=== PATIENT | female | born 1950 | race Caucasian/White ===

== ENCOUNTER 2017-10-27 18:40 | Inpatient (IN) | payer MEDICARE ==
[~2017-10-27] VITALS: Ht 157.5 cm; Wt 70.8 kg
[2017-10-27 20:11] LABS: ALBUMIN 2.8 g/dL (3.4-5.0); ANION GAP 6 mmol/L (5-15); CALCIUM 8.5 mg/dL (8.5-10.1); CHLORIDE 101 mmol/L (98-107); CREATININE 0.79 mg/dL (0.55-1.02)
[2017-10-27 20:11] LABS: CULTURE INDICATED? YES; MICROSCOPIC INDICATED
[2017-10-27 20:13] LABS: MEAN CORPUSCULAR HEMOGLOBIN 31.5 pg (27.0-34.8); MEAN CORPUSCULAR HGB CONC 33.6 g/dL (32.4-35.8); MEAN CORPUSCULAR VOLUME 93.7 fL (80-100); MEAN PLATELET VOLUME 7.9 fL (7.4-10.4); PLATELET COUNT 293 x10^3/uL (130-400); RED BLOOD COUNT 3.97 x10^6/uL (3.82-5.3); RED CELL DISTRIBUTION WIDTH 14.8 % (9.6-15.2)
[2017-10-27 20:14] LABS: TROPONIN I < 0.015 ng/mL (0.000-0.045)
[2017-10-27 20:15] LABS: CREATINE KINASE, TOTAL 77 U/L (26-192)
[2017-10-27 20:39] LABS: BASOPHILS % (AUTO) 0 % (0-1); EOSINOPHILS % (AUTO) 0 % (1-7); LYMPHOCYTES # (AUTO) 0.54 x10^3/uL (1-3.4); LYMPHOCYTES % (AUTO) 3 % (22-44); MD SCAN; MONOCYTES # (AUTO) 0.69 x10^3/uL (0.2-0.8); MONOCYTES % (AUTO) 4 % (2-9); NEUTROPHILS # (AUTO) 18.37 x10^3/uL (1.8-6.8); NEUTROPHILS % (AUTO) 94 % (42-75)
[2017-10-27] MEDS ORDERED: DIAZ5TAB4 PO (21:12)
[2017-10-27] MEDS ORDERED: TRAZ50TA18 PO (21:14)
[2017-10-27] MEDS ORDERED: OXYGEN (21:14)
[2017-10-27 21:25] LABS: AMPHETAMINE SCREEN, URINE Negative (Negative); BARBITURATE SCREEN, URINE Negative (Negative); BENZODIAZEPINE SCREEN, URINE Positive (Negative); CANNABINOID SCREEN, URINE Positive (Negative); COCAINE SCREEN, URINE Negative (Negative); METHADONE SCREEN, URINE Negative (Negative); OPIATE SCREEN, URINE Negative (Negative)
[2017-10-27] MEDS ORDERED: THIAMINE 100 MG in SODIUM CHLORIDE 0.9% 50 ML IV ONE (21:30)
[2017-10-27] MEDS ORDERED: CEFTRIAXONE PMX 1GM/50ML 50 ML ONE (21:50)
[2017-10-27] MEDS ORDERED: SODIUM CHLORIDE 0.9% 1,000ML IVBOLUS ONE ×2 (22:00)
[2017-10-27] MEDS ORDERED: SODIUM CHLORIDE FLUSH 10ML SYR IVF ONE (22:00)
[2017-10-27] MEDS ORDERED: AZITHROMYCIN 500 MG in SODIUM CHLORIDE 0.9% 250 ML IVPB ONE (22:00)
[2017-10-27] MEDS ORDERED: CEFTRIAXONE PMX 1GM/50ML 50 ML IVPB ONE (22:00)
[2017-10-27] MEDS: SODIUM CHLORIDE 0.9% 1,000 ML IV SCH (22:24)
[2017-10-27] MEDS ORDERED: ACETAMINOPHEN 325 MG TABLET ONE (22:28)
[2017-10-27] MEDS ORDERED: hydrALAzine 20 MG/ML, 1ML IVPush PRN (22:30)
[2017-10-27] MEDS ORDERED: morphine SULFATE 10 MG/ML, 1ML IVPush PRN (22:30)
[2017-10-27] MEDS ORDERED: DOCUSATE 100 MG CAPSULE PO PRN (22:30)
[2017-10-27] MEDS ORDERED: ONDANSETRON ODT 4 MG PO PRN (22:30)
[2017-10-27] MEDS ORDERED: PROMETHAZINE 25 MG/ML, 1ML IM PRN (22:30)
[2017-10-27] MEDS ORDERED: OXYcodone IR 5MG TABLET PO PRN (22:30)
[2017-10-27] MEDS ORDERED: POLYETHYLENE GLYCOL 17 GM PACKET PO PRN (22:30)
[2017-10-27] MEDS ORDERED: BISACODYL 10 MG SUPP PR PRN (22:30)
[2017-10-27] MEDS ORDERED: CEFTRIAXONE PMX 1GM/50ML 50 ML IV ONE (22:30)
[2017-10-27] MEDS ORDERED: ONDANSETRON 2MG/ML, 2ML IVPush PRN (22:30)
[2017-10-27] MEDS: ACETAMINOPHEN 325 MG TABLET PO PRN (22:38)
[2017-10-27] MEDS: FLUTICASONE/VILANTEROL 200-25MCG/INH INH SCH (23:00)
[2017-10-27 23:13] LABS: FREE T4 (FREE THYROXINE) 1.09 ng/dL (0.76-1.46); THYROID STIMULATING HORMONE 0.553 mIU/L (0.358-3.740)
[2017-10-27] MEDS ORDERED: THIAMINE 100MG TABLET ONE (23:14)
[2017-10-27 23:17] LABS: HEMOGLOBIN A1C 5.3 % (4.2-6.3)
[2017-10-27] MEDS ORDERED: THIAMINE 100MG TABLET PO ONE ×2 (23:30)
[2017-10-28 00:15] VITALS: BP 121/73
[2017-10-28] MEDS: TRAZODONE 50MG TABLET PO SCH ×2 (00:47→21:22)
[2017-10-28] MEDS: ENOXAPARIN 40 MG/0.4 ML SQ SCH (00:48)
[2017-10-28 05:00] LABS: MEAN CORPUSCULAR HEMOGLOBIN 31.7 pg (27.0-34.8); MEAN CORPUSCULAR HGB CONC 33.7 g/dL (32.4-35.8); MEAN CORPUSCULAR VOLUME 94.1 fL (80-100); MEAN PLATELET VOLUME 7.6 fL (7.4-10.4); PLATELET COUNT 270 x10^3/uL (130-400); RED BLOOD COUNT 3.58 x10^6/uL (3.82-5.3); RED CELL DISTRIBUTION WIDTH 14.5 % (9.6-15.2)
[2017-10-28 05:07] VITALS: BP 129/70
[2017-10-28 05:23] LABS: ALBUMIN 2.2 g/dL (3.4-5.0); ANION GAP 6 mmol/L (5-15); CHLORIDE 109 mmol/L (98-107)
[2017-10-28 05:27] LABS: ALANINE AMINOTRANSFERASE 21 U/L (12-78); ALKALINE PHOSPHATASE 70 U/L (45-117); BILIRUBIN,TOTAL 0.5 mg/dL (0.2-1.0); CHOL/HDL RATIO 1.7; CHOLESTEROL, TOTAL 106 mg/dL (140-239); CREATININE 0.72 mg/dL (0.55-1.02); HDL CHOL % 60 % (28-40); HDL CHOLESTEROL (DIRECT) 64 mg/dL (40-60); LDL CHOLESTEROL,CALCULATED 36 mg/dL (54-169); LDL/HDL RATIO 0.6 (0.5-3.0); TOTAL PROTEIN 5.5 g/dL (6.4-8.2); TRIGLYCERIDES 31 mg/dL (50-200); VLDL CHOLESTEROL 6 mg/dL (0-25)
[2017-10-28 05:28] LABS: MD YES
[2017-10-28 05:30] LABS: <PLATELET ESTIMATE> ADEQUATE; ANISOCYTOSIS 1+; BAND#(MANUAL) 3.26 x10^3/uL; BANDS%(MANUAL) 17 % (0-7); LYMPH#(MANUAL) 3.46 x10^3/uL (1-3.4); LYMPHS% (MANUAL) 18 % (22-44); MONOS#(MANUAL) 0.38 x10^3/uL (0.3-2.7); MONOS% (MANUAL) 2 % (2-9); POLYCHROMASIA 1+; SEGS% (MANUAL) 63 % (42-75)
[2017-10-28 05:31] LABS: <PLT MORPHOLOGY> NORMAL PLT MORPH
[2017-10-28] MEDS ORDERED: GADOBUTROL 7.5 MMOL/7.5 ML PFS ONE (06:34)
[2017-10-28 08:29] VITALS: BP 138/79
[2017-10-28] MEDS: SODIUM CHLORIDE 0.9% 1,000 ML IV SCH (09:24)
[2017-10-28] MEDS: ACETAMINOPHEN 325 MG TABLET PO PRN ×2 (09:42→19:22)
[2017-10-28] MEDS ORDERED: MAGNESIUM SULFATE PMX 2GM/50ML 50 ML IV ONE (10:00)
[2017-10-28] MEDS: MAGNESIUM CHLORIDE 64 MG TABLET.DR PO SCH ×2 (10:40→21:22)
[2017-10-28 13:00] VITALS: BP 124/72
[2017-10-28 19:08] VITALS: BP 139/93
[2017-10-28] MEDS ORDERED: CEFTRIAXONE PMX 2GM/50ML 50 ML IV SCH (20:00)
[2017-10-28] MEDS ORDERED: AZITHROMYCIN 500 MG in SODIUM CHLORIDE 0.9% 250 ML IV SCH (20:00)
[2017-10-28] MEDS: FLUTICASONE/VILANTEROL 200-25MCG/INH INH SCH (23:00)
[2017-10-29] MEDS: ENOXAPARIN 40 MG/0.4 ML SQ SCH (00:52)
[2017-10-29 01:26] VITALS: BP 119/63
[2017-10-29 05:54] LABS: CHLORIDE 112 mmol/L (98-107)
[2017-10-29 06:00] LABS: MEAN CORPUSCULAR HEMOGLOBIN 31.3 pg (27.0-34.8); MEAN CORPUSCULAR HGB CONC 33.2 g/dL (32.4-35.8); MEAN CORPUSCULAR VOLUME 94.3 fL (80-100); MEAN PLATELET VOLUME 7.7 fL (7.4-10.4); PLATELET COUNT 255 x10^3/uL (130-400); RED BLOOD COUNT 3.46 x10^6/uL (3.82-5.3); RED CELL DISTRIBUTION WIDTH 15.5 % (9.6-15.2)
[2017-10-29 06:05] LABS: ANION GAP 8 mmol/L (5-15); CALCIUM 8.1 mg/dL (8.5-10.1)
[2017-10-29 06:15] LABS: MD YES
[2017-10-29 06:22] LABS: LYMPH#(MANUAL) 1.39 x10^3/uL (1-3.4); LYMPHS% (MANUAL) 10 % (22-44); MONOS#(MANUAL) 0.14 x10^3/uL (0.3-2.7); MONOS% (MANUAL) 1 % (2-9)
[2017-10-29 06:23] LABS: BAND#(MANUAL) 0.56 x10^3/uL; BANDS%(MANUAL) 4 % (0-7); SEG#(MANUAL) 11.82 x10^3/uL (1.8-6.8); SEGS% (MANUAL) 85 % (42-75)
[2017-10-29 06:24] LABS: ANISOCYTOSIS 1+; TOXIC GRAN 1+
[2017-10-29 06:29] LABS: <PLATELET ESTIMATE> ADEQUATE; <PLT MORPHOLOGY> NORMAL PLT MORPH
[2017-10-29] MEDS: MAGNESIUM CHLORIDE 64 MG TABLET.DR PO SCH (08:50)
[2017-10-29] MEDS: ACETAMINOPHEN 325 MG TABLET PO PRN (08:50)
[2017-10-29 09:42] VITALS: BP 145/71
[2017-10-29 15:07] VITALS: BP 162/92
[2017-10-29] MEDS ORDERED: AZIT500T PO (16:11)
[2017-10-29] MEDS ORDERED: CEFD300C37 PO (16:11)
[2017-10-29] MEDS ORDERED: FLUT1BLS INH (16:11)
[2017-10-29 17:15] VITALS: BP 157/92
== END 2017-10-29 17:50 | disposition home health service (06) | DRG 871 ==
LOC: ED 22:00 → EDIP 22:02 → 4NOR 23:58
PROVIDERS: ADMIT Internal Medicine; ATTEND Internal Medicine
DX: A41.9 Sepsis, unspecified organism (principal); J18.1 Lobar pneumonia, unspecified organism; E44.0 Moderate protein-calorie malnutrition; J96.10 Chronic respiratory failure, unspecified whether with hypoxia or hypercapnia; Z99.81 Dependence on supplemental oxygen; E87.1 Hypo-osmolality and hyponatremia; J44.0 Chronic obstructive pulmonary disease with (acute) lower respiratory infection; W06.XXXA Fall from bed, initial encounter; E87.6 Hypokalemia; M50.322 Other cervical disc degeneration at C5-C6 level; M46.92 Unspecified inflammatory spondylopathy, cervical region; M48.02 Spinal stenosis, cervical region; F10.20 Alcohol dependence, uncomplicated; F12.10 Cannabis abuse, uncomplicated; F41.9 Anxiety disorder, unspecified; F51.04 Psychophysiologic insomnia; M43.12 Spondylolisthesis, cervical region; Z87.891 Personal history of nicotine dependence; Y93.89 Activity, other specified; Y92.092 Bedroom in other non-institutional residence as the place of occurrence of the external cause; Y99.8 Other external cause status; Z68.28 Body mass index [BMI] 28.0-28.9, adult
CPT/HCPCS: 36415; 70450; 71045; 72125; 72156; 80048; 80053; 80061; 80307; 81001; 82040; 82140; 82550; 83036; 83605; 83735; 84145; 84439; 84443; 84484; 85025; 87040; 87086; 93005; 93306; 96365; A9585; J0456; J0696; J1650; J3475; J7030; J7050

== ENCOUNTER 2018-05-21 13:49 | Emergency (ER) | payer MEDICARE ==
[~2018-05-21] VITALS: Ht 162.6 cm; Wt 68.2 kg
[~2018-05-21 13:49] MED LIST: AZIT500T PO; CEFD300C37 PO; DIAZ5TAB4 PO; FLUT1BLS INH; OXYGEN; TRAZ50TA66 PO
[2018-05-21 14:39] LABS: BASOPHILS % (AUTO) 0 % (0-1); EOSINOPHILS # (AUTO) 0.04 x10^3/uL (0-0.4); EOSINOPHILS % (AUTO) 0 % (1-7); LYMPHOCYTES # (AUTO) 0.97 x10^3/uL (1-3.4); LYMPHOCYTES % (AUTO) 6 % (22-44); MD NO; MEAN CORPUSCULAR HGB CONC 33.5 g/dL (32.4-35.8); MEAN CORPUSCULAR VOLUME 92.6 fL (80-100); MEAN PLATELET VOLUME 7.3 fL (7.4-10.4); MONOCYTES # (AUTO) 0.18 x10^3/uL (0.2-0.8); MONOCYTES % (AUTO) 1 % (2-9); NEUTROPHILS % (AUTO) 92 % (42-75); PLATELET COUNT 330 x10^3/uL (130-400); RED BLOOD COUNT 3.94 x10^6/uL (3.82-5.3); RED CELL DISTRIBUTION WIDTH 15.1 % (9.6-15.2)
[2018-05-21 14:51] LABS: ALBUMIN 3.3 g/dL (3.4-5.0); ANION GAP 8 mmol/L (5-15); CALCIUM 8.6 mg/dL (8.5-10.1); CHLORIDE 107 mmol/L (98-107); CREATININE 0.81 mg/dL (0.55-1.02)
[2018-05-21] MEDS ORDERED: OMEP10CA4 PO (15:55)
[2018-05-21] MEDS ORDERED: FLUO60TA PO (15:55)
[2018-05-21] MEDS ORDERED: OXYcodone/APAP 5/325MG TABLET ONE (16:00)
[2018-05-21] MEDS ORDERED: OXYcodone/APAP 5/325MG TABLET PO ONE (16:00)
[2018-05-21 18:10] VITALS: BP 134/54
== END 2018-05-21 18:44 | disposition home or self-care (01) ==
LOC: ED 16:42
DX: S82.434A Nondisplaced oblique fracture of shaft of right fibula, initial encounter for closed fracture (principal); S82.891A Other fracture of right lower leg, initial encounter for closed fracture; W19.XXXA Unspecified fall, initial encounter; Y93.89 Activity, other specified; Y92.89 Other specified places as the place of occurrence of the external cause; Y99.8 Other external cause status
CPT/HCPCS: 29505; 36415; 80048; 82040; 85025; 99284

== ENCOUNTER 2020-11-27 18:05 | Inpatient (IN) | payer MEDICARE ==
[~2020-11-27] VITALS: Ht 160 cm; Wt 52.6 kg
[~2020-11-27 18:05] MED LIST changes: +FLUO60TA PO; +OMEP10CA5 PO
--- NOTE | 2020-11-27 18:40 | NUR ---
PT TO ROOM FROM LOBBY IN WHEELCHAIR.
[2020-11-27] MEDS ORDERED: SODIUM CHLORIDE FLUSH 10ML SYR IVF ONE (19:00)
[2020-11-27 19:10] LABS: BASOPHILS % (AUTO) 0 % (0-1); EOSINOPHILS % (AUTO) 0 % (1-7); LYMPHOCYTES % (AUTO) 5 % (22-44); MEAN CORPUSCULAR HEMOGLOBIN 29.7 pg (27.0-34.8); MEAN CORPUSCULAR HGB CONC 33.2 g/dL (32.4-35.8); MONOCYTES % (AUTO) 8 % (2-9); NEUTROPHILS % (AUTO) 86 % (42-75); PLATELET COUNT 351 x10^3/uL (130-400); RED BLOOD COUNT 5.33 x10^6/uL (3.82-5.3); RED CELL DISTRIBUTION WIDTH 15.3 % (9.6-15.2)
--- NOTE | 2020-11-27 19:13 | NUR ---
BIBA FROM HOME FOR DIZZINESS AND WEAKNESS, + NAUSEA, AND ANXIETY X2 WKS. PT PLACED ON VITALS MONITORS, FALL PRECAUTIONS IN PLACE. DAUGHTER AT BEDSIDE.
[2020-11-27 19:18] LABS: ALANINE AMINOTRANSFERASE 112 U/L (12-78); ALBUMIN 3.1 g/dL (3.4-5.0); ANION GAP 9 mmol/L (5-15); CALCIUM 9.1 mg/dL (8.5-10.1); CHLORIDE 103 mmol/L (98-107); CREATININE 0.87 mg/dL (0.55-1.02)
[2020-11-27 19:20] LABS: ALKALINE PHOSPHATASE 138 U/L (45-117); BILIRUBIN,TOTAL 0.6 mg/dL (0.2-1.0)
--- NOTE | 2020-11-27 21:28 | NUR ---
PT AMBULATED TO RESTROOM WITH ASSISTANCE.
--- NOTE | 2020-11-27 21:29 | NUR ---
JESSE LEMUS PT'S DAUGHTER [phone].
--- NOTE | 2020-11-27 21:42 | NUR ---
PT DESATS DOWN TO 85% ON RA. PLACED BACK ON 2L NC SATURATION UP TO 96%
[2020-11-27 21:46] LABS: MICROSCOPIC NOT IND
[2020-11-27] MEDS ORDERED: SODIUM CHLORIDE FLUSH 10ML SYR IVF PRN (22:00)
--- NOTE | 2020-11-27 22:08 | NUR ---
PROVIDED CHICKEN BROTH AND CRACKERS.
[2020-11-27] MEDS ORDERED: DIAZEPAM 5 MG TABLET PO PRN (22:30)
[2020-11-27] MEDS ORDERED: BISACODYL 10 MG SUPP PR PRN (22:30)
[2020-11-27] MEDS ORDERED: NS + 20MEQ KCL 1,000 ML IV SCH (22:30)
[2020-11-27] MEDS ORDERED: ONDANSETRON ODT 4 MG PO PRN (22:30)
[2020-11-27] MEDS ORDERED: FLUTICASONE/VILANTEROL 200-25MCG/INH INH SCH (22:30)
[2020-11-27] MEDS ORDERED: POLYETHYLENE GLYCOL 17 GM PACKET PO PRN (22:30)
[2020-11-27] MEDS ORDERED: SODIUM CHLORIDE 0.9% 1,000 ML IV SCH (22:30)
--- NOTE | 2020-11-27 22:46 | NUR ---
REPORT TO MICHAEL ULRICH.
[2020-11-27 23:22] VITALS: BP 156/84
[2020-11-27] MEDS: HEPARIN 5,000 UNITS/ML, 1ML SQ SCH (23:53)
[2020-11-28] MEDS: ALBUTEROL SULFATE 2.5 MG/3 ML NPPB SCH ×4 (02:11→20:47)
[2020-11-28 02:17] VITALS: BP 161/83
[2020-11-28] MEDS ORDERED: ALBUTEROL SULFATE 2.5 MG/3 ML NPPB PRN (03:00)
[2020-11-28 05:06] LABS: BASOPHILS % (AUTO) 0 % (0-1); EOSINOPHILS % (AUTO) 0 % (1-7); LYMPHOCYTES % (AUTO) 10 % (22-44); MEAN CORPUSCULAR HEMOGLOBIN 30.4 pg (27.0-34.8); MEAN CORPUSCULAR HGB CONC 33.5 g/dL (32.4-35.8); MEAN PLATELET VOLUME 7.7 fL (7.4-10.4); MONOCYTES % (AUTO) 8 % (2-9); NEUTROPHILS % (AUTO) 81 % (42-75); PLATELET COUNT 280 x10^3/uL (130-400); RED BLOOD COUNT 4.87 x10^6/uL (3.82-5.3); RED CELL DISTRIBUTION WIDTH 15.1 % (9.6-15.2)
[2020-11-28 05:22] LABS: CHLORIDE 106 mmol/L (98-107)
[2020-11-28 05:28] LABS: ALANINE AMINOTRANSFERASE 103 U/L (12-78); ALBUMIN 2.9 g/dL (3.4-5.0); ALKALINE PHOSPHATASE 119 U/L (45-117); ANION GAP 7 mmol/L (5-15); BILIRUBIN,TOTAL 0.5 mg/dL (0.2-1.0); CALCIUM 8.6 mg/dL (8.5-10.1); CREATININE 0.74 mg/dL (0.55-1.02); TOTAL PROTEIN 6.4 g/dL (6.4-8.2)
[2020-11-28 07:13] VITALS: BP 158/77
[2020-11-28] MEDS ORDERED: NS + 20MEQ KCL 1,000 ML IV SCH (08:00)
[2020-11-28] MEDS: FLUOXETINE HCL 20 MG CAPSULE PO SCH (09:08)
[2020-11-28] MEDS: SENNA/DOCUSATE TABLET PO SCH (09:08)
[2020-11-28] MEDS: OMEPRAZOLE 10 MG CAPSULE.DR PO SCH (09:08)
[2020-11-28] MEDS: HEPARIN 5,000 UNITS/ML, 1ML SQ SCH ×3 (09:09→23:25)
[2020-11-28] MEDS: BUDESONIDE 0.5 MG/2 ML INHA NPPB SCH ×2 (09:52→20:47)
[2020-11-28 12:09] VITALS: BP 156/87
[2020-11-28] MEDS: NS + 20MEQ KCL 1,000 ML IV SCH (14:49)
[2020-11-28 21:01] VITALS: BP 165/80
[2020-11-28] MEDS: TRAZODONE 50MG TABLET PO SCH (21:08)
[2020-11-28] MEDS ORDERED: MAGNESIUM SULFATE PMX 2GM/50ML 50 ML IV ONE ×2 (23:00)
[2020-11-28] MEDS ORDERED: ACETAMINOPHEN 325 MG TABLET PO PRN (23:00)
[2020-11-28] MEDS ORDERED: hydrALAzine 20 MG/ML, 1ML IV PRN (23:00)
[2020-11-28 23:30] VITALS: BP 129/72
[2020-11-29] MEDS: ALBUTEROL SULFATE 2.5 MG/3 ML NPPB SCH ×4 (02:04→21:00)
[2020-11-29 07:25] VITALS: BP 166/84
[2020-11-29] MEDS: OMEPRAZOLE 10 MG CAPSULE.DR PO SCH (08:59)
[2020-11-29] MEDS: SENNA/DOCUSATE TABLET PO SCH (09:00)
[2020-11-29] MEDS: HEPARIN 5,000 UNITS/ML, 1ML SQ SCH ×2 (09:00→16:41)
[2020-11-29] MEDS: FLUOXETINE HCL 20 MG CAPSULE PO SCH (09:00)
[2020-11-29] MEDS: BUDESONIDE 0.5 MG/2 ML INHA NPPB SCH ×2 (09:29→21:00)
[2020-11-29 12:41] VITALS: BP 136/68
[2020-11-29] MEDS: NS + 20MEQ KCL 1,000 ML IV SCH ×2 (14:33→21:20)
[2020-11-29 19:18] VITALS: BP 150/82
[2020-11-29] MEDS ORDERED: POTASSIUM CHLORIDE 20 MEQ TAB.ER.PRT PO ONE (21:00)
[2020-11-29] MEDS: TRAZODONE 50MG TABLET PO SCH (21:56)
[2020-11-30] MEDS: HEPARIN 5,000 UNITS/ML, 1ML SQ SCH ×3 (00:17→16:42)
[2020-11-30] MEDS: ALBUTEROL SULFATE 2.5 MG/3 ML NPPB SCH ×4 (02:15→21:00)
[2020-11-30 02:22] VITALS: BP 129/61
[2020-11-30] MEDS: NS + 20MEQ KCL 1,000 ML IV SCH ×3 (03:40→17:01)
[2020-11-30 07:02] VITALS: BP 144/67
[2020-11-30] MEDS: BUDESONIDE 0.5 MG/2 ML INHA NPPB SCH ×2 (08:10→21:00)
[2020-11-30] MEDS: FLUOXETINE HCL 20 MG CAPSULE PO SCH (08:37)
[2020-11-30] MEDS: SENNA/DOCUSATE TABLET PO SCH (08:37)
[2020-11-30] MEDS: OMEPRAZOLE 10 MG CAPSULE.DR PO SCH (08:37)
[2020-11-30 09:19] LABS: ANION GAP 8 mmol/L (5-15); CHLORIDE 109 mmol/L (98-107); CREATININE 0.71 mg/dL (0.55-1.02)
[2020-11-30 12:50] VITALS: BP 147/97
[2020-11-30 18:59] VITALS: BP 130/68
[2020-11-30] MEDS: TRAZODONE 50MG TABLET PO SCH (21:36)
[2020-12-01] MEDS: HEPARIN 5,000 UNITS/ML, 1ML SQ SCH ×2 (00:25→08:11)
[2020-12-01 02:08] VITALS: BP 125/63
[2020-12-01] MEDS: ALBUTEROL SULFATE 2.5 MG/3 ML NPPB SCH (02:10)
[2020-12-01] MEDS: NS + 20MEQ KCL 1,000 ML IV SCH ×3 (06:13→13:17)
[2020-12-01 07:00] VITALS: BP 175/76
[2020-12-01] MEDS: OMEPRAZOLE 10 MG CAPSULE.DR PO SCH (08:11)
[2020-12-01] MEDS: SENNA/DOCUSATE TABLET PO SCH (08:11)
[2020-12-01] MEDS: FLUOXETINE HCL 20 MG CAPSULE PO SCH (08:11)
[2020-12-01 13:47] VITALS: BP 132/76
== END 2020-12-01 15:33 | disposition home health service (06) | DRG 641 ==
LOC: ED 21:12 → EDIP 21:51 → 3N 23:15
PROVIDERS: ADMIT Family Medicine; ATTEND Internal Medicine
DX: E86.0 Dehydration (principal); J96.11 Chronic respiratory failure with hypoxia; J44.9 Chronic obstructive pulmonary disease, unspecified; R62.7 Adult failure to thrive; D72.829 Elevated white blood cell count, unspecified; E87.6 Hypokalemia; F32.9 Major depressive disorder, single episode, unspecified; G25.0 Essential tremor; Z59.0 Homelessness; Z87.891 Personal history of nicotine dependence; Z99.81 Dependence on supplemental oxygen
CPT/HCPCS: 36415; 71045; 74176; 80048; 80053; 80074; 81003; 83690; 83735; 85025; 93005; 94640; 99285; G0378; J1644; J3480; J7613; J7626; J3475

== ENCOUNTER 2021-01-21 17:59 | Emergency (ER) | payer MEDICARE ==
[~2021-01-21] VITALS: Ht 157.5 cm; Wt 51.8 kg
--- NOTE | 2021-01-21 18:15 | NUR ---
RT at bedside.
[2021-01-21] MEDS ORDERED: ALBUTEROL/IPRATROPIUM 2.5MG/0.5MG, 3 ML ONE (18:16)
[2021-01-21] MEDS ORDERED: ALBUTEROL/IPRATROPIUM 2.5MG/0.5MG, 3 ML NPPB ONE (18:30)
--- NOTE | 2021-01-21 18:30 | NUR ---
Pt reports feeling improved s/p breathing tx. Remains upright on gurney with no further complaints. Lab at bedside.
[2021-01-21 18:39] LABS: BASOPHILS % (AUTO) 1 % (0-1); EOSINOPHILS % (AUTO) 1 % (1-7); LYMPHOCYTES % (AUTO) 14 % (22-44); MEAN CORPUSCULAR HEMOGLOBIN 30.4 pg (27.0-34.8); MEAN CORPUSCULAR HGB CONC 33.4 g/dL (32.4-35.8); MEAN PLATELET VOLUME 7.3 fL (7.4-10.4); MONOCYTES % (AUTO) 8 % (2-9); NEUTROPHILS % (AUTO) 77 % (42-75); PLATELET COUNT 277 x10^3/uL (130-400); RED BLOOD COUNT 4.36 x10^6/uL (3.82-5.3); RED CELL DISTRIBUTION WIDTH 16.1 % (9.6-15.2)
--- NOTE | 2021-01-21 19:04 | NUR ---
Report to SERG Suazo, to assume full care, all questions answered.
--- NOTE | 2021-01-21 19:23 | NUR ---
PT UP TO RESTROOM WITH STEADY GAIT NADN
[2021-01-21 20:19] VITALS: BP 162/75
--- NOTE | 2021-01-21 20:19 | NUR ---
PT RESTING ON GURNEY RESP EVEN AND UNLABORED NADN, VSS NO NEEDS AT THIS TIME.
[2021-01-21 21:12] LABS: CHLORIDE 106 mmol/L (98-107)
[2021-01-21 21:21] LABS: ALANINE AMINOTRANSFERASE 53 U/L (12-78); ALBUMIN 2.9 g/dL (3.4-5.0); ALKALINE PHOSPHATASE 112 U/L (45-117); ANION GAP 3 mmol/L (5-15); BILIRUBIN,TOTAL 0.4 mg/dL (0.2-1.0); CALCIUM 8.8 mg/dL (8.5-10.1); CREATININE 0.87 mg/dL (0.55-1.02); TOTAL PROTEIN 6.5 g/dL (6.4-8.2); TROPONIN I < 0.015 ng/mL (0.000-0.045)
--- NOTE | 2021-01-21 22:49 | NUR ---
PT REFUSING TO LEAVE ED SHE DOES NOT LIKE THE JAIL, ALTERNATE SHELTERS CONTACTED UNABLE TO TAKE PT. PT GIVEN DC INSTRUCTIONS AND TAXI VOUCHER TO [facility] RES[employer] LIST
== END 2021-01-21 22:55 | disposition home or self-care (01) ==
LOC: ED 21:16
DX: J44.1 Chronic obstructive pulmonary disease with (acute) exacerbation (principal); Z72.9 Problem related to lifestyle, unspecified; R06.02 Shortness of breath; R94.31 Abnormal electrocardiogram [ECG] [EKG]; F17.210 Nicotine dependence, cigarettes, uncomplicated
CPT/HCPCS: 36415; 71045; 80053; 83880; 84484; 85025; 93005; 94640; 99285; 99406

== ENCOUNTER 2021-02-09 21:45 | Inpatient (IN) | payer MEDICARE ==
[~2021-02-09] VITALS: Ht 157.5 cm; Wt 50.7 kg
[~2021-02-09 21:45] MED LIST changes: +AMLO-150 PO; +FLUO20CA23 PO
--- NOTE | 2021-02-09 21:58 | NUR ---
[facility]. PT REPORTED TO CAREGIVER THAT SHE HAD TERRIBLE DIZZYNESS, HEADACHE, CHEST RESSURE AND TIGHTNESS SO CAREGIVER CALLED ANGEL LUIS PT STATES IF HER O2 ISNT ON THEN SHE HAS THESE SYMPTOMS. ATTACHED TO CARD/SP02/BP MONITORS. BP ELEVATED. NADN BED IN LOW, RAILS ENGAGED, CALL LIGHT ON LAP. WCTM PT VERY POOR HISTORIAN
[2021-02-09] MEDS ORDERED: PLEASE ENTER HEIGHT AND WEIGHT MC SCH (22:00)
[2021-02-09] MEDS ORDERED: ACETAMINOPHEN 500 MG TABLET PO ONE (22:00)
[2021-02-09 22:34] LABS: BASOPHILS % (AUTO) 1 % (0-1); EOSINOPHILS % (AUTO) 0 % (1-7); LYMPHOCYTES % (AUTO) 9 % (22-44); MEAN CORPUSCULAR HEMOGLOBIN 30.8 pg (27.0-34.8); MEAN PLATELET VOLUME 7.2 fL (7.4-10.4); MONOCYTES % (AUTO) 6 % (2-9); NEUTROPHILS % (AUTO) 83 % (42-75); PLATELET COUNT 335 x10^3/uL (130-400); RED BLOOD COUNT 4.23 x10^6/uL (3.82-5.3); RED CELL DISTRIBUTION WIDTH 15.4 % (9.6-15.2)
--- NOTE | 2021-02-09 22:45 | NUR ---
PT TRANSFERRED TO [facility]. TOLERATED WELL. UNMEASURED URINE Addendum: 02/09/21 at 2255 by [email or web address] PT RESTING IN BED WITH BLANKETS, ATTACHED TO MONITORS. BP ELEVATED. NADN. WATCHING TV. URINE CLEAR AND YELLOW. WCTM
[2021-02-09 22:46] LABS: ALBUMIN 2.8 g/dL (3.4-5.0); ANION GAP 8 mmol/L (5-15); CALCIUM 8.5 mg/dL (8.5-10.1); CHLORIDE 105 mmol/L (98-107); CREATININE 0.78 mg/dL (0.55-1.02)
[2021-02-09 22:50] LABS: TROPONIN I < 0.015 ng/mL (0.000-0.045)
[2021-02-10] VITALS (7 sets, daily range): BP systolic 134–175; BP diastolic 80–105
--- NOTE | 2021-02-10 00:41 | NUR ---
Patient is resting comfortably in bed WATCHING TV. Bed in lowest, rails engaged, call light on lap. Vital Signs within normal limits. WCTM. NADN
[2021-02-10] MEDS ORDERED: ACETAMINOPHEN 500 MG TABLET ONE (00:43)
--- NOTE | 2021-02-10 00:49 | NUR ---
CALLED [facility] [phone] NO ANSWER
--- NOTE | 2021-02-10 01:47 | NUR ---
[facility] [phone] no answer Addendum: 02/10/21 at 0148 by [email or web address] Jana martin [phone]
--- NOTE | 2021-02-10 01:54 | NUR ---
SPOKE TO MD ABOUT PT TRANSPORT BACK TO HOME FOR SAFE DC AND WAS INSTRUCTED TO KEEP PT UNTIL WE CAN GET A HOLD OF ALF.
--- NOTE | 2021-02-10 02:03 | NUR ---
Patient is resting comfortably in bed. Bed in lowest, rails engaged, call light on lap. Vital Signs within normal limits. WCTM.
--- NOTE | 2021-02-10 02:13 | NUR ---
CALLED morgan martin AND HE DID NOT ANSWER. 2ND MISSED CALL
--- NOTE | 2021-02-10 02:44 | NUR ---
SPOKE TO MO HARRIS AND HE SAID THEY ARE NOT ALLOWING PT TO COME BACK DUE TO NON-COMPLIANCE BY SMOKING CIGARETTES AND NOT LISTENING, AND NOT FOLLOWING DIRECTIONS. Addendum: 02/10/21 at 0250 by [email or web address] MO REPEATEDLY STATED THEY ARE NOT TAKING PT BACK NOTIFIED ERMD AND CHARGE NURSE ABOUT SITUATION.
[2021-02-10] MEDS ORDERED: TRAZ50TA66 PO (03:43)
[2021-02-10] MEDS ORDERED: BUSP5TAB2 PO (03:43)
[2021-02-10] MEDS ORDERED: FLUO60TA PO (03:43)
[2021-02-10] MEDS ORDERED: OMEP-110 PO (03:43)
--- NOTE | 2021-02-10 03:43 | NUR ---
PT POOR HISTORIAN WITH MEDICATIONS. MAKE TAKE MORE BU UNKNOWN
--- NOTE | 2021-02-10 03:45 | NUR ---
PT REPORTS TO THIS NURSE THAT MO WAS MISTREATING HER DUE TO NOT BEING ABLE TO PAY HER PART AT THE DETENTION.
[2021-02-10] MEDS ORDERED: MELATONIN 5 MG TABLET PO PRN (04:00)
[2021-02-10] MEDS ORDERED: NITROGLYCERIN 0.4 MG/SPRAY SL PRN (04:00)
[2021-02-10] MEDS ORDERED: ENOXAPARIN 40 MG/0.4 ML SQ SCH (04:00)
[2021-02-10] MEDS ORDERED: NITROGLYCERIN 0.4 MG BOTTLE (25 TABS) SL PRN (04:00)
[2021-02-10] MEDS ORDERED: ONDANSETRON 2MG/ML, 2ML IVPush PRN (04:00)
[2021-02-10] MEDS ORDERED: OXYcodone IR 5MG TABLET PO PRN (04:00)
[2021-02-10] MEDS ORDERED: POLYETHYLENE GLYCOL 17 GM PACKET PO PRN (04:00)
[2021-02-10] MEDS ORDERED: LABETALOL 5MG/ML, 20ML ONE (04:07)
[2021-02-10] MEDS ORDERED: ENOXAPARIN 40 MG/0.4 ML ONE (04:07)
[2021-02-10] MEDS: LABETALOL 5MG/ML, 20ML IVPush PRN ×4 (04:10→23:46)
[2021-02-10 04:18] LABS: ANION GAP 7 mmol/L (5-15); CALCIUM 8.5 mg/dL (8.5-10.1); CHLORIDE 105 mmol/L (98-107); CREATININE 0.67 mg/dL (0.55-1.02)
[2021-02-10 04:21] LABS: TROPONIN I < 0.015 ng/mL (0.000-0.045)
--- NOTE | 2021-02-10 04:53 | NUR ---
LATE ENTRY DUE TO PT CARE. PUREWICK APPLIED DUE TO PT HAVING TO GET UP EVERY 30 MINUTES TO URINATE 450ML TOTAL YELLOW CLEAR URINE IN SUCTION CONTAINER. PT IS NOT STABLE TRANSFER. PUREWICK APPLIED FOR SAFETY.
--- NOTE | 2021-02-10 05:08 | NUR ---
GAVE REPORT TO OLGA ULRICH
--- NOTE | 2021-02-10 05:12 | NUR ---
Patient is resting comfortably in bed. Bed in lowest, rails engaged, call light on lap. Vital Signs within normal limits. WCTM.
[2021-02-10] MEDS: ENOXAPARIN 40 MG/0.4 ML SQ SCH (05:46)
[2021-02-10] MEDS: ACETAMINOPHEN 325 MG TABLET PO PRN ×2 (05:46→23:26)
[2021-02-10 09:30] LABS: BASOPHILS % (AUTO) 1 % (0-1); EOSINOPHILS % (AUTO) 1 % (1-7); LYMPHOCYTES % (AUTO) 10 % (22-44); MEAN CORPUSCULAR HEMOGLOBIN 29.8 pg (27.0-34.8); MEAN CORPUSCULAR HGB CONC 32.7 g/dL (32.4-35.8); MEAN PLATELET VOLUME 7.3 fL (7.4-10.4); MONOCYTES % (AUTO) 6 % (2-9); NEUTROPHILS % (AUTO) 83 % (42-75); PLATELET COUNT 370 x10^3/uL (130-400); RED BLOOD COUNT 4.48 x10^6/uL (3.82-5.3); RED CELL DISTRIBUTION WIDTH 15.4 % (9.6-15.2)
[2021-02-10 09:46] LABS: TROPONIN I < 0.015 ng/mL (0.000-0.045)
[2021-02-11 00:14] VITALS: BP 165/97
[2021-02-11] MEDS: ENOXAPARIN 40 MG/0.4 ML SQ SCH (05:41)
[2021-02-11 08:25] VITALS: BP 164/83
[2021-02-11] MEDS: OMEPRAZOLE 20 MG CAPSULE.DR PO SCH (08:26)
[2021-02-11] MEDS: FLUOXETINE HCL 20 MG CAPSULE PO SCH (08:26)
[2021-02-11] MEDS: AMLODIPINE 5 MG TABLET PO SCH ×2 (08:26→20:22)
[2021-02-11] MEDS: BUSPIRONE 5 MG TABLET PO SCH ×3 (08:26→20:22)
[2021-02-11] MEDS ORDERED: POTASSIUM CHLORIDE 20 MEQ TAB.ER.PRT PO ONE (08:30)
[2021-02-11] MEDS: ALBUTEROL/IPRATROPIUM 2.5MG/0.5MG, 3 ML HHN SCH ×3 (09:57→21:10)
[2021-02-11] MEDS: BUDESONIDE 0.5 MG/2 ML INHA INH SCH ×2 (09:57→21:15)
[2021-02-11 10:12] LABS: ALANINE AMINOTRANSFERASE 31 U/L (12-78); ALBUMIN 2.8 g/dL (3.4-5.0); ANION GAP 7 mmol/L (5-15); CALCIUM 8.6 mg/dL (8.5-10.1); CHLORIDE 104 mmol/L (98-107); CREATININE 0.74 mg/dL (0.55-1.02)
[2021-02-11 10:15] LABS: ALKALINE PHOSPHATASE 122 U/L (45-117); BILIRUBIN,TOTAL 0.4 mg/dL (0.2-1.0); TOTAL PROTEIN 6.7 g/dL (6.4-8.2)
[2021-02-11 10:45] LABS: MICROSCOPIC NOT IND
[2021-02-11 12:45] VITALS: BP 154/73
[2021-02-11] MEDS: ACETAMINOPHEN 325 MG TABLET PO PRN (13:50)
[2021-02-11 20:02] VITALS: BP 162/80
[2021-02-11] MEDS: TRAZODONE 50MG TABLET PO SCH (20:22)
[2021-02-12 01:03] VITALS: BP 138/83
[2021-02-12] MEDS: ALBUTEROL/IPRATROPIUM 2.5MG/0.5MG, 3 ML HHN SCH ×4 (03:00→19:59)
[2021-02-12 05:57] LABS: BASOPHILS % (AUTO) 1 % (0-1); EOSINOPHILS % (AUTO) 2 % (1-7); LYMPHOCYTES % (AUTO) 16 % (22-44); MEAN CORPUSCULAR HEMOGLOBIN 30.3 pg (27.0-34.8); MEAN CORPUSCULAR HGB CONC 33.1 g/dL (32.4-35.8); MEAN PLATELET VOLUME 6.9 fL (7.4-10.4); MONOCYTES % (AUTO) 8 % (2-9); NEUTROPHILS % (AUTO) 74 % (42-75); PLATELET COUNT 364 x10^3/uL (130-400); RED CELL DISTRIBUTION WIDTH 15.4 % (9.6-15.2)
[2021-02-12] MEDS: ENOXAPARIN 40 MG/0.4 ML SQ SCH (06:09)
[2021-02-12 07:00] VITALS: BP 135/80
[2021-02-12] MEDS: BUDESONIDE 0.5 MG/2 ML INHA INH SCH ×2 (07:32→19:59)
[2021-02-12] MEDS: AMLODIPINE 5 MG TABLET PO SCH ×2 (08:16→20:15)
[2021-02-12] MEDS: BUSPIRONE 5 MG TABLET PO SCH ×3 (08:16→20:15)
[2021-02-12] MEDS: FLUOXETINE HCL 20 MG CAPSULE PO SCH (08:16)
[2021-02-12] MEDS: OMEPRAZOLE 20 MG CAPSULE.DR PO SCH (08:16)
[2021-02-12 12:50] VITALS: BP 144/82
[2021-02-12 18:59] VITALS: BP 145/84
[2021-02-12 20:13] VITALS: BP 166/81
[2021-02-12] MEDS: ACETAMINOPHEN 325 MG TABLET PO PRN (20:15)
[2021-02-12] MEDS: TRAZODONE 50MG TABLET PO SCH (20:15)
[2021-02-13] MEDS: ACETAMINOPHEN 325 MG TABLET PO PRN ×4 (00:48→21:02)
[2021-02-13 00:49] VITALS: BP 151/83
[2021-02-13] MEDS: ALBUTEROL/IPRATROPIUM 2.5MG/0.5MG, 3 ML HHN SCH ×4 (03:00→21:00)
[2021-02-13] MEDS: ENOXAPARIN 40 MG/0.4 ML SQ SCH (06:00)
[2021-02-13] MEDS: LISINOPRIL 10 MG TABLET PO SCH (08:22)
[2021-02-13] MEDS: BUSPIRONE 5 MG TABLET PO SCH ×3 (08:22→21:02)
[2021-02-13] MEDS: FLUOXETINE HCL 20 MG CAPSULE PO SCH (08:22)
[2021-02-13] MEDS: AMLODIPINE 5 MG TABLET PO SCH ×2 (08:22→21:02)
[2021-02-13] MEDS: OMEPRAZOLE 20 MG CAPSULE.DR PO SCH (08:22)
[2021-02-13 08:23] VITALS: BP 156/72
[2021-02-13] MEDS: BUDESONIDE 0.5 MG/2 ML INHA INH SCH ×2 (09:00→21:00)
[2021-02-13 12:30] VITALS: BP 137/83
[2021-02-13 19:39] VITALS: BP 135/75
[2021-02-13] MEDS: TRAZODONE 50MG TABLET PO SCH (21:02)
[2021-02-14 00:39] VITALS: BP 134/73
[2021-02-14] MEDS: ALBUTEROL/IPRATROPIUM 2.5MG/0.5MG, 3 ML HHN SCH ×4 (03:00→21:00)
[2021-02-14] MEDS: ENOXAPARIN 40 MG/0.4 ML SQ SCH (05:53)
[2021-02-14] MEDS: BUDESONIDE 0.5 MG/2 ML INHA INH SCH ×2 (08:29→21:00)
[2021-02-14 09:10] VITALS: BP 148/79
[2021-02-14] MEDS: BUSPIRONE 5 MG TABLET PO SCH ×3 (09:56→20:20)
[2021-02-14] MEDS: OMEPRAZOLE 20 MG CAPSULE.DR PO SCH (09:56)
[2021-02-14] MEDS: LISINOPRIL 10 MG TABLET PO SCH (09:56)
[2021-02-14] MEDS: AMLODIPINE 5 MG TABLET PO SCH ×2 (09:56→20:20)
[2021-02-14] MEDS: FLUOXETINE HCL 20 MG CAPSULE PO SCH (09:56)
[2021-02-14 14:08] VITALS: BP 160/75
[2021-02-14] MEDS: ACETAMINOPHEN 325 MG TABLET PO PRN (18:48)
[2021-02-14 19:37] VITALS: BP 169/89
[2021-02-14] MEDS: TRAZODONE 50MG TABLET PO SCH (20:20)
[2021-02-15 01:15] VITALS: BP 139/66
[2021-02-15] MEDS: ALBUTEROL/IPRATROPIUM 2.5MG/0.5MG, 3 ML HHN SCH ×3 (03:00→10:02)
[2021-02-15] MEDS: ENOXAPARIN 40 MG/0.4 ML SQ SCH (05:07)
[2021-02-15 07:06] VITALS: BP 166/75
[2021-02-15 09:41] VITALS: BP 147/82
[2021-02-15] MEDS: AMLODIPINE 5 MG TABLET PO SCH ×2 (09:42→21:41)
[2021-02-15] MEDS: BUDESONIDE 0.5 MG/2 ML INHA INH SCH (09:42)
[2021-02-15] MEDS: BUSPIRONE 5 MG TABLET PO SCH ×3 (09:42→21:40)
[2021-02-15] MEDS: OMEPRAZOLE 20 MG CAPSULE.DR PO SCH (09:42)
[2021-02-15] MEDS: LISINOPRIL 10 MG TABLET PO SCH ×2 (09:42→21:41)
[2021-02-15] MEDS: FLUOXETINE HCL 20 MG CAPSULE PO SCH (09:42)
[2021-02-15] MEDS: ACETAMINOPHEN 325 MG TABLET PO PRN ×3 (11:56→21:40)
[2021-02-15 13:40] VITALS: BP 146/74
[2021-02-15 19:17] VITALS: BP 154/77
[2021-02-15] MEDS: TRAZODONE 50MG TABLET PO SCH (21:41)
[2021-02-16 01:20] VITALS: BP 153/76
[2021-02-16] MEDS: ENOXAPARIN 40 MG/0.4 ML SQ SCH (05:35)
[2021-02-16 05:58] LABS: BASOPHILS % (AUTO) 1 % (0-1); EOSINOPHILS % (AUTO) 2 % (1-7); LYMPHOCYTES % (AUTO) 23 % (22-44); MEAN CORPUSCULAR HEMOGLOBIN 30.1 pg (27.0-34.8); MEAN CORPUSCULAR HGB CONC 32.5 g/dL (32.4-35.8); MEAN PLATELET VOLUME 7.1 fL (7.4-10.4); MONOCYTES % (AUTO) 8 % (2-9); NEUTROPHILS % (AUTO) 66 % (42-75); PLATELET COUNT 322 x10^3/uL (130-400); RED BLOOD COUNT 4.17 x10^6/uL (3.82-5.3); RED CELL DISTRIBUTION WIDTH 15.1 % (9.6-15.2)
[2021-02-16 07:21] VITALS: BP 150/77
[2021-02-16] MEDS: OMEPRAZOLE 20 MG CAPSULE.DR PO SCH (08:40)
[2021-02-16] MEDS: FLUOXETINE HCL 20 MG CAPSULE PO SCH (08:40)
[2021-02-16] MEDS: AMLODIPINE 5 MG TABLET PO SCH ×2 (08:40→21:33)
[2021-02-16] MEDS: LISINOPRIL 10 MG TABLET PO SCH ×2 (08:40→21:33)
[2021-02-16] MEDS: BUSPIRONE 5 MG TABLET PO SCH ×3 (08:40→21:33)
[2021-02-16] MEDS: ACETAMINOPHEN 325 MG TABLET PO PRN ×3 (09:55→21:33)
[2021-02-16 13:39] VITALS: BP 132/58
[2021-02-16 18:07] VITALS: BP 135/76
[2021-02-16] MEDS: TRAZODONE 50MG TABLET PO SCH (21:33)
[2021-02-17 00:31] VITALS: BP 142/69
[2021-02-17] MEDS: ENOXAPARIN 40 MG/0.4 ML SQ SCH (06:00)
[2021-02-17 06:48] VITALS: BP 144/75
[2021-02-17] MEDS: OMEPRAZOLE 20 MG CAPSULE.DR PO SCH (07:52)
[2021-02-17] MEDS: AMLODIPINE 5 MG TABLET PO SCH ×2 (07:52→21:11)
[2021-02-17] MEDS: BUSPIRONE 5 MG TABLET PO SCH ×3 (07:52→21:11)
[2021-02-17] MEDS: FLUOXETINE HCL 20 MG CAPSULE PO SCH (07:53)
[2021-02-17] MEDS: LISINOPRIL 10 MG TABLET PO SCH ×2 (07:53→21:10)
[2021-02-17 12:31] VITALS: BP 158/68
[2021-02-17] MEDS: BUTALB/APAP/CAFFEINE 50MG/325MG/40MG PO PRN ×2 (13:57→21:10)
[2021-02-17 20:00] VITALS: BP 153/60
[2021-02-17] MEDS: TRAZODONE 50MG TABLET PO SCH (21:11)
[2021-02-18 01:33] VITALS: BP 117/62
[2021-02-18] MEDS: ENOXAPARIN 40 MG/0.4 ML SQ SCH (06:00)
[2021-02-18] MEDS: FLUOXETINE HCL 20 MG CAPSULE PO SCH (08:02)
[2021-02-18] MEDS: OMEPRAZOLE 20 MG CAPSULE.DR PO SCH (08:03)
[2021-02-18] MEDS: LISINOPRIL 10 MG TABLET PO SCH (08:03)
[2021-02-18] MEDS: AMLODIPINE 5 MG TABLET PO SCH (08:03)
[2021-02-18] MEDS: BUSPIRONE 5 MG TABLET PO SCH ×2 (08:03→15:27)
[2021-02-18 09:24] VITALS: BP 142/77
[2021-02-18] MEDS: BUTALB/APAP/CAFFEINE 50MG/325MG/40MG PO PRN ×2 (09:33→15:28)
[2021-02-18] MEDS ORDERED: BUTA-177 PO (14:13)
[2021-02-18] MEDS ORDERED: AMLO-150 PO (14:13)
[2021-02-18] MEDS ORDERED: LISI-167 PO (14:13)
[2021-02-18 15:17] VITALS: BP 143/76
== END 2021-02-18 17:21 | disposition home or self-care (01) | DRG 313 ==
LOC: ED 22:00 → EDIP 02-10 03:46 → OBSVTOIN 02-10 03:46 → 5SO 02-10 05:26 → 3N 02-15 20:13
PROVIDERS: ADMIT Internal Medicine; ATTEND Family Medicine
DX: R07.89 Other chest pain (principal); J96.11 Chronic respiratory failure with hypoxia; R62.7 Adult failure to thrive; J44.9 Chronic obstructive pulmonary disease, unspecified; I27.20 Pulmonary hypertension, unspecified; F17.210 Nicotine dependence, cigarettes, uncomplicated; F41.9 Anxiety disorder, unspecified; I10 Essential (primary) hypertension; F12.90 Cannabis use, unspecified, uncomplicated; F32.9 Major depressive disorder, single episode, unspecified; E87.6 Hypokalemia; D72.829 Elevated white blood cell count, unspecified; Z99.81 Dependence on supplemental oxygen; Z71.6 Tobacco abuse counseling; Z59.0 Homelessness; Z79.899 Other long term (current) drug therapy; Z68.20 Body mass index [BMI] 20.0-20.9, adult
CPT/HCPCS: 36415; 71045; 80048; 80053; 81003; 82040; 84132; 84145; 84484; 85025; 85379; 93005; 94640; 96374; 99406; G0378; J1650; J2405; J7626

== ENCOUNTER 2021-02-20 16:35 | Emergency (ER) | payer MEDICARE ==
[~2021-02-20] VITALS: Ht 157.5 cm; Wt 48.3 kg
[~2021-02-20 16:35] MED LIST changes: +BUSP5TAB2 PO; +BUTA-177 PO; +LISI-167 PO; +OMEP-110 PO
--- NOTE | 2021-02-20 17:03 | NUR ---
KIMBERLY HEIN FOR CP AND SOB. SEEN AT [facility] EARLIER TODAY. PT IS ALSO EXPERIENCING HOMELESSNESS. UNABLE TO GET INTO A INTERMEDIATE AT THIS TIME. PT IN BED WITH CONT CEMENT SACK BREAKER, SPO2, BP Q 30 MIN, SIDE RAILS UP X2, CALL [facility] IN REACH. SW CONSULT PUT IN.
[2021-02-20 18:03] VITALS: BP 124/74
== END 2021-02-20 18:05 | disposition home or self-care (01) ==
LOC: ED 17:55
DX: R07.89 Other chest pain (principal); R06.02 Shortness of breath; Z72.9 Problem related to lifestyle, unspecified; I10 Essential (primary) hypertension; F17.210 Nicotine dependence, cigarettes, uncomplicated
CPT/HCPCS: 36415; 71045; 80048; 80053; 81003; 82040; 84132; 84145; 84484; 85025; 85379; 93005; 94640; 96374; 99283; 99406; G0378; J1650; J2405; J7626

== ENCOUNTER 2021-02-21 17:35 | Emergency (ER) | payer MEDICARE ==
[~2021-02-21] VITALS: Ht 157.5 cm; Wt 50.0 kg
--- NOTE | 2021-02-21 17:58 | NUR ---
REPORT FROM LARA RN, ASSUME CARE OF PT AT THIS TIME. ED DIET TRAY ORDERED.
--- NOTE | 2021-02-21 18:21 | NUR ---
ED DIET TRAY PROVIDED. PT STATES SHE IS NOT SUICIDAL ANYMORE, FEELS BETTER MENTALLY AT THIS TIME. OXYGEN REMOVED TO GET RA SAT. RA SAT 96%. AWAITING XRAY. CALL LIGHT WITHIN REACH.
--- NOTE | 2021-02-21 19:18 | NUR ---
REPORT TO AISHWARYA, TRANSFER OF CARE AT THIS TIME.
--- NOTE | 2021-02-21 19:58 | NUR ---
THIS RN SPOKE WITH PRODUCT CONSULTANT KAIA AND SHE STATED THAT PT WAS HERE LAST WEEK AND [facility] HAD PAID FOR PLACEMENT FOR HER, BUT PT REFUSED TO STOP SMOKING AND DID NOT F0LLOW THE PROTOCOL FOR THE LOCATION SHE WAS PLACED IN, PTS CHEST XRAY WAS CLEAR AND PT HAS BEEN 94% ON ROOM AIR, PT STATED SHE HASNT EATEN ANYTHING FOR DAYS BUT PT WAS HERE LAST NIGHT AND WAS GIVEN FOOD, PT WAS ALSO GIVEN FOOD TODAY WELL, PT GIVEN THE OPTION TO GO TO THE [facility] AND PT STATED SHE WOULD RATHER GO TO THE [facility] THIS RN PROVIDED A CAB VOUCHER TO THE [facility] AND EXPLAINED THAT PT CAN GO TO [facility] OR [facility] TO GET HER PRESCRIPTIONS, PT AMBULATED WITH HER WALKER TO THE DISCHARGE DESK, NAD UPON DISCHARGE
[2021-02-21 20:03] VITALS: BP 150/72
== END 2021-02-21 20:05 | disposition home or self-care (01) ==
LOC: ED 19:35
DX: J44.1 Chronic obstructive pulmonary disease with (acute) exacerbation (principal); I10 Essential (primary) hypertension; F17.200 Nicotine dependence, unspecified, uncomplicated; R07.89 Other chest pain
CPT/HCPCS: 71045; 93005; 99283

== ENCOUNTER 2021-02-25 10:01 | Emergency (ER) | payer MEDICARE ==
[~2021-02-25] VITALS: Ht 157.5 cm; Wt 51.0 kg
--- NOTE | 2021-02-25 10:12 | NUR ---
KIMBERLY HEIN FROM [facility] FOR GLF OUTSIDE OF SHOWER ON WET FLOOR. PT C/O RT WRIST PAIN. PT BROUGHT IN ON RA SATURATING WELL. PER PT, SHE IS ALWAYS ON 4L NC. NC PLACED IN ED FOR PT COMFORT. PT CONTINUES TO SATURATE WELL.
--- NOTE | 2021-02-25 10:54 | NUR ---
DRESSINGS REMOVED FROM BILATERAL WRISTS. PT REPORTS USING SCISSORS TO CUT BILATERAL WRISTS. SUPERFICIAL LACS IN VARYING STAGES OF HEALING EVIDENT WITH STERISTRIPS REMAINING ON SOME LACS. PT REPORTS DRESSINGS IN PLACE WERE ORIGINAL AND PT HAS NEVER CHANGED THE DRESSINGS. MD AWARE OF DRESSING REMOVAL.
[2021-02-25] MEDS ORDERED: ACETAMINOPHEN 500 MG TABLET PO ONE (11:00)
[2021-02-25] MEDS ORDERED: ACETAMINOPHEN 500 MG TABLET ONE (11:11)
--- NOTE | 2021-02-25 11:18 | NUR ---
XRAY COMPLETED AWAITING READ. PT MEDICATED PER EMAR. SIDE RAILS UP, CALL LIGHT IN REACH.
[2021-02-25] MEDS ORDERED: BACITRACIN ZINC OINT 500U/GM, 0.9 GM ONE (11:46)
--- NOTE | 2021-02-25 12:43 | NUR ---
SPLINTING COMPLETE. EDUCATION PROVIDED ON SPLINTING AND WOUND CARE. PT VERBALIZES UNDERSTANDING. MULTIPLE CALL ATTEMPTS FOR TAXI RIDE.
[2021-02-25 12:47] VITALS: BP 157/86
== END 2021-02-25 12:59 | disposition home or self-care (01) ==
LOC: ED 10:29
DX: S61.511A Laceration without foreign body of right wrist, initial encounter (principal); S61.411A Laceration without foreign body of right hand, initial encounter; S60.211A Contusion of right wrist, initial encounter; I10 Essential (primary) hypertension; J44.9 Chronic obstructive pulmonary disease, unspecified; W18.30XA Fall on same level, unspecified, initial encounter; Y93.89 Activity, other specified; Y92.009 Unspecified place in unspecified non-institutional (private) residence as the place of occurrence of the external cause; Y99.8 Other external cause status
CPT/HCPCS: 29125; 99283

== ENCOUNTER 2021-03-12 16:21 | Inpatient (IN) | payer MEDICARE ==
[~2021-03-12] VITALS: Ht 157.5 cm; Wt 47.2 kg
[2021-03-20 14:40] VITALS: BP 115/69
== END 2021-03-20 15:14 | disposition home or self-care (01) | DRG 871 ==
LOC: SUATTDRO 18:11 → ED 18:30 → EDIP 18:34 → 3N 22:26
PROVIDERS: ADMIT Internal Medicine; ATTEND Family Medicine
PROC: XW033E5 Introduction of Remdesivir Anti-infective into Peripheral Vein, Percutaneous Approach, New Technology Group 5 (ICD-10-PCS; principal; 2021-03-12)
DX: A41.89 Other specified sepsis (principal); U07.1 COVID-19; J12.82 Pneumonia due to coronavirus disease 2019; J96.21 Acute and chronic respiratory failure with hypoxia; E43 Unspecified severe protein-calorie malnutrition; Z68.1 Body mass index [BMI] 19.9 or less, adult; D68.59 Other primary thrombophilia; E87.1 Hypo-osmolality and hyponatremia; E87.2 Acidosis; Z66 Do not resuscitate; G31.84 Mild cognitive impairment of uncertain or unknown etiology; J43.9 Emphysema, unspecified; F12.90 Cannabis use, unspecified, uncomplicated; F17.200 Nicotine dependence, unspecified, uncomplicated; Z59.0 Homelessness; Z99.81 Dependence on supplemental oxygen